=== PATIENT | male | born 1965 | race Hispanic/Latino ===

== ENCOUNTER 2020-06-27 15:04 | Outpatient (CLI) | payer BC ==
--- NOTE | 2020-06-27 16:25 | ULT ---
RIGHT LOWER EXTREMITY VENOUS DUPLEX EXAM: 06/27/20 INDICATIONS: Right lower extremity pain and edema. Deep veins of the right lower extremity evaluated with ultrasound and Doppler. Color Doppler and spec tral analysis and compression study performed. FINDINGS: Deep veins of the right lower extremity show normal blood flow and compression. No evidence of DVT. N umerous superficial varicose veins were noted by the technologist. IMPRESSION: No evidence of right lower extremity DVT. POS: [facility]
== END 2020-06-27 15:05 | disposition home or self-care (01) ==
LOC: SCSULT 15:04
PROVIDERS: ATTEND Family Medicine
DX: R60.9 Edema, unspecified (principal)